=== PATIENT | female | born 1995 | race Two or more races ===

== ENCOUNTER 2016-11-10 19:06 | Emergency (ER) | payer OTHER ==
[2016-11-10] MEDS ORDERED: KETOROLAC TROMETHAMINE 15 MG/ML VIAL ONE (19:54)
[2016-11-10] MEDS ORDERED: ONDANSETRON 4 MG/2ML 2 ML VIAL ONE (19:54)
[2016-11-10] MEDS ORDERED: LACTATED RINGERS 1,000 ML ONE (19:54)
[2016-11-10 20:27] LABS: HCG,QUALITATIVE URINE NEGATIVE
[2016-11-10 20:30] LABS: ABSOLUTE NEUTROPHIL COUNT 5.7 K/mm3 (1.8-7.7); BASO % 0.3 % (0.2-1.0); EOS # 0.1 (0.0-0.5); EOS % 1.2 % (0.9-2.9); HEMATOCRIT 44.2 % (37.0-47.0); HEMOGLOBIN 14.3 gm/l (12.0-16.0); IMM NEUT% 0.2 % (0-1); LYMPH # 2.3 (1.0-4.8); LYMPH % 26.2 % (15-45); MEAN CELL VOLUME 86.2 fl (81.0-99.0); MEAN CORPUSCULAR HEMOGLOBIN 27.9 pg (27.0-31.0); MEAN CORPUSCULAR HGB CONC 32.4 g/dl (33.0-37.0); MEAN PLATELET VOLUME 10.5 fl (7.4-10.4); MONO # 0.5 (0.0-0.8); MONO % 5.8 % (4-12); NEUT % 66.3 % (43-75); PLATELET COUNT 317 K/mm3 (130-400); RED CELL DISTRIBUTION WIDTH 13.8 % (11.5-14.5)
== END 2016-11-10 21:05 | disposition home or self-care (01) ==
LOC: ED 19:06
DX: N92.0 Excessive and frequent menstruation with regular cycle (principal); N94.6 Dysmenorrhea, unspecified
CPT/HCPCS: 81025; 85025; 96375; 99284; 96374; 99283; J1885; J2405; J7120